=== PATIENT | male | born 1990 | race Hispanic/Latino ===

== ENCOUNTER 2019-11-28 00:51 | Inpatient (IN) | payer SELFPAY ==
[~2019-11-28] VITALS: Ht 170.2 cm; Wt 120.1 kg
[2019-11-28 01:23] LABS: BASOPHILS % (AUTO) 0.9 % (0.0-5.0); HEMATOCRIT 52.8 % (42-54); LYMPHOCYTES % (AUTO) 23.9 % (21.0-51.0); MEAN CORPUSCULAR HEMOGLOBIN 23.2 pg (27.0-33.0); MEAN CORPUSCULAR HGB CONC 30.3 g/dL (32.0-36.0); MEAN CORPUSCULAR VOLUME 76.5 fL (79-99); MONOCYTES % (AUTO) 8.2 % (3.0-13.0); NEUTROPHILS % (AUTO) 63.8 % (40.0-77.0); PLATELET COUNT (AUTO) 336 K/uL (130-400); RED CELL DISTRIBUTION WIDTH 18.7 % (11.0-15.5); WHITE BLOOD COUNT (AUTO) 10.8 K/uL (4.8-10.8)
[2019-11-28 01:31] LABS: CREATININE 1.6 mg/dL (0.5-1.5); POTASSIUM 4.2 mmol/L (3.5-5.1)
[2019-11-28 01:32] LABS: INR 1.15 (0.85-1.15); PARTIAL THROMBOPLASTIN TIME 24.7 SEC (26.3-35.5)
[2019-11-28 01:35] LABS: ALBUMIN 2.8 g/dL (3.5-5.0); BILIRUBIN,TOTAL 1.1 mg/dL (0.2-1.0); TOTAL PROTEIN, SERUM 6.4 g/dL (6.0-8.3)
[2019-11-28 01:36] LABS: APPEARANCE,URINE Clear (CLEAR); BILIRUBIN,URINE Small (NEGATIVE); COLOR,URINE Dark Yellow (YELLOW); GLUCOSE, URINE (UA) Negative (NEGATIVE); KETONES,URINE Trace mg/dL (NEGATIVE); LEUKOCYTE ESTERASE ,URINE Negative (NEGATIVE); NITRATE,URINE Negative (NEGATIVE); OCCULT BLOOD,URINE Small (NEGATIVE); PROTEIN,URINE >=1000 mg/dL (NEGATIVE)
[2019-11-28 01:38] LABS: B-TYPE NATRIURETIC PEPTIDE 873 pg/mL (0-100)
[2019-11-28 01:54] LABS: BACTERIA,URINE None Seen /HPF (None Seen); MUCUS,URINE Rare LPF (None Seen); RBC,URINE 0-1 /HPF (0-1); SQUAMOUS EPITHELIAL CELL,UR Rare /HPF (0-2); WBC,URINE None Seen /HPF (0-1)
[2019-11-28 02:26] LABS: AMPHET/METH SCREEN,URINE NEGATIVE (NEGATIVE); BARBITURATE SCREEN, URINE NEGATIVE (NEGATIVE); BENZODIAZEPINES SCREEN,URINE NEGATIVE (NEGATIVE); CANNABINOID SCREEN,URINE NEGATIVE (NEGATIVE); COCAINE SCREEN,URINE NEGATIVE (NEGATIVE); OPIATE SCREEN,URINE NEGATIVE (NEGATIVE); PHENCYCLIDINE SCREEN,URINE NEGATIVE (NEGATIVE)
[2019-11-28] MEDS ORDERED: ONDANSETRON HCL 4 MG/2 ML VIAL IV PRN (02:45)
[2019-11-28] MEDS ORDERED: LACTULOSE 20 GM/30 ML UDCUP PO PRN (02:45)
[2019-11-28 03:09] LABS: CHOLESTEROL 148 mg/dL (<200); HDL CHOLESTEROL 86 mg/dL (29-71); LDL DIRECT 112 mg/dL (0-99); TRIGLYCERIDES 140 mg/dL (30-200)
[2019-11-28 03:11] LABS: HEMOGLOBIN A1C 6.1 % (4.0-6.0)
[2019-11-28 03:20] VITALS: BP 146/110
--- NOTE | 2019-11-28 03:20 | NUR ---
ADMISSION. PT TRANSFERRED FROM ER INTO ROOM 414, AWAKE, ALERT AND VERBALLY RESPONSIVE. NO C/O PAIN OR DISCOMFORT AT THIS TIME. PT ORIENTED TO ROOM, CALL [facility] WITHIN REACH, BED IN LOWEST POSITION. Addendum: 11/28/19 at 0431 by RENARD CORREIA RN Amended: Links added.
[2019-11-28] MEDS ORDERED: LISI-617 PO (03:53)
[2019-11-28] MEDS ORDERED: OMEP20CA12 PO (03:53)
[2019-11-28] MEDS ORDERED: DOXY100C40 PO (03:53)
[2019-11-28] MEDS ORDERED: LACT1CAP68 PO (03:53)
[2019-11-28] MEDS: HYDRALAZINE HCL 20 MG/ML VIAL IV PRN (04:52)
[2019-11-28] MEDS: METOPROLOL TARTRATE 25 MG TAB PO SCH ×2 (06:42→20:14)
[2019-11-28 08:00] VITALS: BP 138/60
[2019-11-28] MEDS ORDERED: ASPIRIN 81MG TAB.CHEW PO SCH (09:00)
[2019-11-28] MEDS ORDERED: ENOXAPARIN SODIUM 30 MG/0.3 ML SQ SCH (09:00)
[2019-11-28] MEDS: FAMOTIDINE 20MG TAB 20 MG TAB PO SCH (09:41)
[2019-11-28 12:00] VITALS: BP 134/85
[2019-11-28] MEDS: FUROSEMIDE 10 MG/ML 4ML VIAL IV SCH (15:39)
[2019-11-28 16:00] VITALS: BP 135/68
[2019-11-28 19:53] VITALS: BP 152/111
[2019-11-28] MEDS: ATORVASTATIN CALCIUM 20 MG TABLET PO SCH (20:14)
[2019-11-29 00:12] VITALS: BP_SYST 122; BP_SYST 99; BP_DIAS 55; BP_DIAS 73
[2019-11-29] MEDS: FUROSEMIDE 10 MG/ML 4ML VIAL IV SCH ×2 (02:39→15:39)
[2019-11-29 03:55] VITALS: BP 140/93
[2019-11-29 06:03] LABS: BASOPHILS % (AUTO) 1.2 % (0.0-5.0); EOSINOPHILS % (AUTO) 2.5 % (0.0-8.0); LYMPHOCYTES % (AUTO) 22.2 % (21.0-51.0); MEAN CORPUSCULAR HEMOGLOBIN 23.5 pg (27.0-33.0); MEAN CORPUSCULAR HGB CONC 30.6 g/dL (32.0-36.0); MEAN CORPUSCULAR VOLUME 76.9 fL (79-99); MONOCYTES % (AUTO) 9.7 % (3.0-13.0); NEUTROPHILS % (AUTO) 64.1 % (40.0-77.0); PLATELET COUNT (AUTO) 351 K/uL (130-400); RED CELL DISTRIBUTION WIDTH 18.5 % (11.0-15.5); WHITE BLOOD COUNT (AUTO) 10.3 K/uL (4.8-10.8)
[2019-11-29 06:17] LABS: B-TYPE NATRIURETIC PEPTIDE 589 pg/mL (0-100)
[2019-11-29 06:18] LABS: CREATININE 1.6 mg/dL (0.5-1.5); POTASSIUM 4.3 mmol/L (3.5-5.1)
[2019-11-29 07:55] VITALS: BP 142/116
[2019-11-29] MEDS: METOPROLOL TARTRATE 25 MG TAB PO SCH ×2 (09:44→21:15)
[2019-11-29] MEDS: FAMOTIDINE 20MG TAB 20 MG TAB PO SCH (09:44)
--- NOTE | 2019-11-29 11:57 | NUR ---
CARDIAC CONSULT PAGED DR. DAVEY FOR NEW ON-SET CHF WITH 2D ECHO EF OF 25-30%. ANSWERING SERVICE TO ALEXX PHILLIP.
[2019-11-29 12:00] VITALS: BP 128/71
--- NOTE | 2019-11-29 15:00 | NUR ---
SPOKE TO MIKAL FROM [facility] REGARDING CONSULT. PER MIKAL, WILL NOTIFY DR. RAIMUNDO SEAMAN AND WILL FOLLOW UP WITH PATIENT IN AM.
[2019-11-29 16:00] VITALS: BP 140/95
--- NOTE | 2019-11-29 19:33 | NUR ---
D/C PLAN CM spoke to pt regarding d/c planning. Pt is ind. and lives alone. States girlfriend can assist in care if needed. CM provided community resources packet. Plan to home. CM to f/u. Addendum: 11/29/19 at 1934 by CLARISA VILLAFUERTE CM Amended: Links added.
[2019-11-29 20:29] VITALS: BP 162/111
[2019-11-29] MEDS ORDERED: ENALAPRIL MALEATE 10 MG TABLET ONE (21:06)
[2019-11-29] MEDS: ENALAPRIL MALEATE 5 MG TAB PO SCH (21:14)
[2019-11-29] MEDS: ATORVASTATIN CALCIUM 20 MG TABLET PO SCH (21:15)
[2019-11-29] MEDS: HYDROXYZINE HCL 25 MG TABLET PO PRN (21:15)
[2019-11-30] VITALS (7 sets, daily range): BP systolic 130–162; BP diastolic 84–117
[2019-11-30] MEDS: FUROSEMIDE 10 MG/ML 4ML VIAL IV SCH ×2 (02:53→17:05)
[2019-11-30 06:13] LABS: BASOPHILS % (AUTO) 1.1 % (0.0-5.0); EOSINOPHILS % (AUTO) 3.1 % (0.0-8.0); HEMATOCRIT 50.5 % (42-54); MEAN CORPUSCULAR HEMOGLOBIN 23.2 pg (27.0-33.0); MEAN CORPUSCULAR HGB CONC 30.3 g/dL (32.0-36.0); MEAN CORPUSCULAR VOLUME 76.6 fL (79-99); NEUTROPHILS % (AUTO) 55.6 % (40.0-77.0); PLATELET COUNT (AUTO) 338 K/uL (130-400); RED BLOOD CELL COUNT(AUTO) 6.59 MIL/uL (4.50-6.20); RED CELL DISTRIBUTION WIDTH 18.6 % (11.0-15.5); WHITE BLOOD COUNT (AUTO) 10.8 K/uL (4.8-10.8)
[2019-11-30 06:44] LABS: CREATININE 1.8 mg/dL (0.5-1.5); POTASSIUM 4.1 mmol/L (3.5-5.1); T4 (THYROXINE) 7.5 ug/dL (4.7-13.3); THYROID STIMULATING HORMONE 3.27 uIU/mL (0.36-3.74)
[2019-11-30 06:54] LABS: % IRON SATURATION 7.7 % (30-44)
[2019-11-30 07:02] LABS: B-TYPE NATRIURETIC PEPTIDE 632 pg/mL (0-100)
[2019-11-30] MEDS: FAMOTIDINE 20MG TAB 20 MG TAB PO SCH (09:00)
[2019-11-30] MEDS ORDERED: REGADENOSON 0.4 MG/5 ML PF SYG IVP SCH (09:45)
[2019-11-30] MEDS: ENALAPRIL MALEATE 5 MG TAB PO SCH ×2 (11:03→20:36)
[2019-11-30] MEDS: METOPROLOL TARTRATE 25 MG TAB PO SCH ×2 (11:03→20:35)
--- NOTE | 2019-11-30 17:02 | NUR ---
RD NOTIFICATION BMI IS 47 CLASSIFIED MORBID OBESE. DIET: HEART HEALTHY - TOLERATING WELL. MEDS REVIEWED. LABS REVIEWED. SKIN IS INTACT. LBM: 11/29 NOTED. PT OUT OF ROOM AT TIME OF VISIT. PENDING RESULTS AT THIS TIME. RD PENDING WEIGHT LOSS DIET AND NUTRITION EDUCATION DUE TO OBESITY CONTINUE CURRENT DIET RD WILL CONTINUE TO MONITOR AND FOLLOW UP, THANK YOU. Addendum: 11/30/19 at [address] Amended: Links added.
--- NOTE | 2019-11-30 17:25 | NUR ---
PT COMPLAINS PATIENT FINALLY CAME BACK FROM HIS STRESS TEST, HE WAS OUT OF THE ROOM FOR MOST OF THE DAY. DR BROUSSARD ROUNDED EARLIER BUT PT WAS STILL DOWN IN [facility]. I WALKED INTO THE ROOM, PATIENT STATED COMPLAINING ABOUT THE LACK COMMUNICATION FROM NURSES AND DOCTORS AND THE POOR DELIVERY OF INFORMATION DURING HIS ADMISSION. HE WANTS TO KNOW THE RESULTS ON ALL OF THE PREVIOUS TESTS DONE AND HIS PLAN OF CARE. I CALLED DR BROUSSARD AND INFORMED HIM OF THIS SITUATION. DR BROUSSARD VISITED WITH PATIENT. POC DISCUSSED. ALL QUESTIONS ANSWERED ACCORDINGLY. PATIENT CONTINUES TO BE IN A DENIAL ATTITUDE, BELIEVES THAT WE ARE NOT DOING ENOUGH FOR HIM, EVEN WHEN EVERYTHING HAS BEEN EXPLAINED TO HIM BY DR BROUSSARD AND MYSELF. PATIENTS MOTHER, PARIS, TALKED TO ME OUTSIDE THE ROOM AND EXPLAINED THAT HIS SON HAS ALWAYS BEEN VERY STUBBORN AND GETS FRUSTRATED VERY EASILY. I REASSURED PARIS THAT WE ARE DOING EVERYTHING FOR HIS SON AND THAT THE DOCTORS ARE WILLING TO HELP HIM IF HE AGREES. WILL CONTINUE TO MONITOR PATIENT CLOSELY.
[2019-11-30] MEDS: ATORVASTATIN CALCIUM 20 MG TABLET PO SCH (20:36)
[2019-12-01] MEDS: FUROSEMIDE 10 MG/ML 4ML VIAL IV SCH ×2 (03:20→17:03)
[2019-12-01 03:56] VITALS: BP 151/119
[2019-12-01 04:50] LABS: BASOPHILS % (AUTO) 1.2 % (0.0-5.0); EOSINOPHILS % (AUTO) 4.8 % (0.0-8.0); LYMPHOCYTES % (AUTO) 30.2 % (21.0-51.0); MEAN CORPUSCULAR HEMOGLOBIN 23.3 pg (27.0-33.0); MEAN CORPUSCULAR HGB CONC 30.6 g/dL (32.0-36.0); MEAN CORPUSCULAR VOLUME 76.4 fL (79-99); MONOCYTES % (AUTO) 8.9 % (3.0-13.0); NEUTROPHILS % (AUTO) 54.5 % (40.0-77.0); PLATELET COUNT (AUTO) 341 K/uL (130-400); RED BLOOD CELL COUNT(AUTO) 6.81 MIL/uL (4.50-6.20); RED CELL DISTRIBUTION WIDTH 18.6 % (11.0-15.5); WHITE BLOOD COUNT (AUTO) 10.5 K/uL (4.8-10.8)
[2019-12-01 05:00] LABS: ALBUMIN 2.7 g/dL (3.5-5.0); CREATININE 1.9 mg/dL (0.5-1.5); POTASSIUM 3.8 mmol/L (3.5-5.1); TOTAL PROTEIN, SERUM 6.6 g/dL (6.0-8.3)
[2019-12-01] MEDS ORDERED: METOLAZONE 2.5 MG TABLET PO SCH (09:00)
[2019-12-01 09:17] VITALS: BP 148/119
[2019-12-01] MEDS: METOPROLOL TARTRATE 25 MG TAB PO SCH ×2 (09:28→20:14)
[2019-12-01] MEDS: ENALAPRIL MALEATE 5 MG TAB PO SCH ×2 (09:28→20:15)
[2019-12-01] MEDS: FAMOTIDINE 20MG TAB 20 MG TAB PO SCH (09:28)
[2019-12-01 11:00] VITALS: BP 124/72
--- NOTE | 2019-12-01 11:00 | NUR ---
PATIENT STATED HE DIDN'T LIKED THE WAY DR SEAMAN EXPLAINED THINGS TO HIM. I PROVIDED PATIENT WITH MORE INFORMATION ON HEART CATH, EXIT CARE MATERIAL PROVIDED WELL. ALL QUESTIONS ANSWERED ACCORDINGLY. AFTER EXPLAINING THE PROCEDURE THOROUGHLY PATIENT IS NOW ABLE TO UNDERSTAND HOW IT'S DONE, RISK AND BENEFITS AND SO ON. PATIENT AGREES TO HAVE THE PROCEDURE DONE, INFORMED DR SEAMAN OF PT AGREEMENT. HOWEVER, DR SEAMAN WANTS TO MONITOR HIS RENAL FUNCTION FOR TODAY, CBC AND BNP ORDERED FOR TOMORROW MORNING. POSSIBLE HEART CATH TOMORROW, DEPENDING ON LAB RESULTS, PT AWARE, NO MORE CONCERNS VOICED.
[2019-12-01 17:02] VITALS: BP 144/98
[2019-12-01 19:54] VITALS: BP 148/104
[2019-12-01] MEDS: ATORVASTATIN CALCIUM 20 MG TABLET PO SCH (20:14)
[2019-12-01] MEDS: HYDROXYZINE HCL 25 MG TABLET PO PRN (22:15)
[2019-12-01 23:56] VITALS: BP 161/109
[2019-12-02] MEDS: FUROSEMIDE 10 MG/ML 4ML VIAL IV SCH ×2 (03:48→15:13)
[2019-12-02 03:51] VITALS: BP 147/94
[2019-12-02 05:37] LABS: HEMATOCRIT 51.3 % (42-54); MEAN CORPUSCULAR HEMOGLOBIN 23.1 pg (27.0-33.0); MEAN CORPUSCULAR HGB CONC 30.2 g/dL (32.0-36.0); MEAN CORPUSCULAR VOLUME 76.3 fL (79-99); PLATELET COUNT (AUTO) 334 K/uL (130-400); RED BLOOD CELL COUNT(AUTO) 6.72 MIL/uL (4.50-6.20); RED CELL DISTRIBUTION WIDTH 18.1 % (11.0-15.5); WHITE BLOOD COUNT (AUTO) 10.1 K/uL (4.8-10.8)
[2019-12-02 05:55] LABS: ALBUMIN 2.7 g/dL (3.5-5.0); BILIRUBIN,TOTAL 0.9 mg/dL (0.2-1.0); CREATININE 1.6 mg/dL (0.5-1.5); POTASSIUM 3.5 mmol/L (3.5-5.1); TOTAL PROTEIN, SERUM 6.3 g/dL (6.0-8.3)
[2019-12-02 06:03] LABS: B-TYPE NATRIURETIC PEPTIDE 703 pg/mL (0-100)
[2019-12-02 06:18] LABS: BAND NEUTROPHILS % (MANUAL) 1 % (0-2); BASOPHILS % (MANUAL) 3 % (0-2); EOSINOPHILS % (MANUAL) 8 % (1-6); LYMPHOCYTES % (MANUAL) 29 % (22-44); MAN.DIFF COMMENT-IMPRESSION MANUAL DIFFERENTIAL; MONOCYTES % (MANUAL) 13 % (2-9); SEGMENTED NEUTROPHILS % 46 % (40-70)
[2019-12-02 06:19] LABS: PLATELET MORPHOLOGY COMMENT ADEQUATE
[2019-12-02 08:00] VITALS: BP 148/103
[2019-12-02] MEDS: ENALAPRIL MALEATE 5 MG TAB PO SCH ×2 (08:38→22:31)
[2019-12-02] MEDS: METOLAZONE 2.5 MG TABLET PO SCH (08:38)
[2019-12-02] MEDS: FAMOTIDINE 20MG TAB 20 MG TAB PO SCH (08:38)
[2019-12-02] MEDS: ASPIRIN 81 MG EC TAB PO SCH (08:38)
[2019-12-02] MEDS: METOPROLOL TARTRATE 25 MG TAB PO SCH ×2 (08:38→22:31)
[2019-12-02 11:59] VITALS: BP 128/96
[2019-12-02 16:00] VITALS: BP 153/108
--- NOTE | 2019-12-02 16:53 | NUR ---
SPOKE TO PATIENT AT LENGTH RE RIGHT & LEFT HEARTH CATH IN AM. PT STATED APPRECIATED TEACHING BY PRIMARY RN RE PLAN OF CARE RISK FACTORS AND INITIATION OF CHF TEACHING DONE. PT EXPRESSED INTEREST IN [facility] , PREVIOUSLY HAD DECLINED STATING DR. SAGASTUME IS HIS MD; NOW WILL LIKE APPLICATION FOR [facility]
[2019-12-02] MEDS ORDERED: POTASSIUM CHLORIDE 20 MEQ ERTAB PO ONE (19:08)
[2019-12-02] MEDS: MORPHINE SULFATE 2 MG/ML 1ML SYG IV PRN (19:09)
[2019-12-02] MEDS ORDERED: LIDOCAINE HCL-MPF 1% 2ML VIAL IV PRN (19:15)
[2019-12-02] MEDS ORDERED: POTASSIUM CHLORIDE 10% ELIXIR 20 MEQ/15 ML UDCUP PO PRN (19:15)
[2019-12-02] MEDS ORDERED: POTASSIUM CHLORIDE 10MEQ/100ML 100 ML IV PRN (19:15)
[2019-12-02] MEDS ORDERED: POTASSIUM CHLORIDE 20 MEQ ERTAB PO PRN (19:15)
[2019-12-02 19:55] VITALS: BP 167/99
[2019-12-02] MEDS: ATORVASTATIN CALCIUM 20 MG TABLET PO SCH (22:31)
[2019-12-02 23:21] VITALS: BP 155/98
[2019-12-03] VITALS (13 sets, daily range): BP systolic 143–164; BP diastolic 86–114
[2019-12-03 04:22] LABS: EOSINOPHILS % (AUTO) 8.6 % (0.0-8.0); LYMPHOCYTES % (AUTO) 28.6 % (21.0-51.0); MEAN CORPUSCULAR HEMOGLOBIN 23.2 pg (27.0-33.0); MEAN CORPUSCULAR HGB CONC 30.4 g/dL (32.0-36.0); MEAN CORPUSCULAR VOLUME 76.2 fL (79-99); NEUTROPHILS % (AUTO) 52.3 % (40.0-77.0); PLATELET COUNT (AUTO) 286 K/uL (130-400); RED BLOOD CELL COUNT(AUTO) 6.69 MIL/uL (4.50-6.20); RED CELL DISTRIBUTION WIDTH 17.9 % (11.0-15.5); WHITE BLOOD COUNT (AUTO) 8.6 K/uL (4.8-10.8)
[2019-12-03 04:46] LABS: ALBUMIN 2.5 g/dL (3.5-5.0); BILIRUBIN,TOTAL 0.8 mg/dL (0.2-1.0); CREATININE 1.9 mg/dL (0.5-1.5); POTASSIUM 3.5 mmol/L (3.5-5.1); TOTAL PROTEIN, SERUM 6.1 g/dL (6.0-8.3)
[2019-12-03] MEDS: FUROSEMIDE 10 MG/ML 4ML VIAL IV SCH ×2 (05:50→16:10)
[2019-12-03] MEDS ORDERED: HEPARIN SODIUM 1000UNIT/ML 10ML VIAL ONE (07:23)
[2019-12-03] MEDS ORDERED: NITROGLYCERIN 2 MG/VIAL VIAL IV ONE (07:24)
[2019-12-03] MEDS ORDERED: NICARDIPINE HCL 25 MG/10 ML ML IV ONE (07:24)
[2019-12-03] MEDS ORDERED: IOHEXOL 350 MG/ML 100ML INFUS..BTL IV ONE (07:24)
[2019-12-03] MEDS ORDERED: IOHEXOL-350 50ML VIAL IV ONE (07:24)
[2019-12-03] MEDS ORDERED: FENTANYL CITRATE PF 50 MCG/1 ML 2ML VIAL ONE (07:25)
[2019-12-03] MEDS ORDERED: MIDAZOLAM HCL 1 MG/ML 2ML VIAL ONE (07:25)
[2019-12-03] MEDS ORDERED: LIDOCAINE HCL 2% 20ML ONE (07:25)
[2019-12-03] MEDS ORDERED: LABETALOL 20 MG/4 ML DISP.SYRIN IV ONE (08:37)
[2019-12-03] MEDS ORDERED: HYDRALAZINE HCL 20 MG/ML VIAL IV PRN (08:45)
[2019-12-03] MEDS ORDERED: HYDRALAZINE HCL 20 MG/ML VIAL ONE (08:56)
[2019-12-03] MEDS: ASPIRIN 81 MG EC TAB PO SCH (09:00)
[2019-12-03] MEDS: METOLAZONE 2.5 MG TABLET PO SCH (09:00)
[2019-12-03] MEDS: FAMOTIDINE 20MG TAB 20 MG TAB PO SCH (12:10)
[2019-12-03] MEDS: METOPROLOL TARTRATE 25 MG TAB PO SCH ×2 (12:10→20:22)
[2019-12-03] MEDS: ENALAPRIL MALEATE 5 MG TAB PO SCH ×2 (12:11→20:23)
--- NOTE | 2019-12-03 14:18 | NUR ---
NUTRITION EDUCATION COMPLETED DX ACUTE ON CHRONIC CHF AND CARDIOMYOPATHY. S/P CORONARY ANGIOGRAPHY VIA RIGHT RADIAL APPROACH. PT CONSUMES REGULAR DIET AT HOME AND IS SOMEWHAT FAMILIAR WITH FOODS TO AVOID/ RECOMMENDED ACCORDING TO HIS NEEDS. RD PROVIDED HEART HEALTHY AND LOW SODIUM DIET AND NUTRITION EDUCATION. ALL QUESTIONS WERE ANSWERED AND PT VERBALIZED UNDERSTANDING. EDUCATION MATERIALS WERE PROVIDED FOR HOME IN [place]. Addendum: 12/03/19 at [address] Amended: Links added.
[2019-12-03] MEDS: ATORVASTATIN CALCIUM 20 MG TABLET PO SCH (20:23)
[2019-12-03] MEDS: NICOTINE 21 MG/ 24 HR PATCH TD SCH (21:29)
[2019-12-03] MEDS: HYDRALAZINE HCL 20 MG/ML VIAL IV PRN (22:36)
[2019-12-04] MEDS: MORPHINE SULFATE 2 MG/ML 1ML SYG IV PRN (00:23)
[2019-12-04 00:24] VITALS: BP 148/81
[2019-12-04 03:53] LABS: HEMATOCRIT 55.5 % (42-54); MEAN CORPUSCULAR HEMOGLOBIN 22.9 pg (27.0-33.0); MEAN CORPUSCULAR HGB CONC 30.6 g/dL (32.0-36.0); MEAN CORPUSCULAR VOLUME 74.7 fL (79-99); PLATELET COUNT (AUTO) 301 K/uL (130-400); RED BLOOD CELL COUNT(AUTO) 7.43 MIL/uL (4.50-6.20); RED CELL DISTRIBUTION WIDTH 18.5 % (11.0-15.5); WHITE BLOOD COUNT (AUTO) 10.8 K/uL (4.8-10.8)
[2019-12-04] MEDS: FUROSEMIDE 10 MG/ML 4ML VIAL IV SCH (03:54)
[2019-12-04 04:17] LABS: CREATININE 1.5 mg/dL (0.5-1.5); POTASSIUM 3.4 mmol/L (3.5-5.1)
[2019-12-04 04:24] VITALS: BP 139/103
[2019-12-04 08:07] VITALS: BP 152/101
[2019-12-04] MEDS: NICOTINE 21 MG/ 24 HR PATCH TD SCH (08:11)
[2019-12-04] MEDS: ASPIRIN 81 MG EC TAB PO SCH (08:12)
[2019-12-04] MEDS: METOLAZONE 2.5 MG TABLET PO SCH (08:12)
[2019-12-04] MEDS: FAMOTIDINE 20MG TAB 20 MG TAB PO SCH (08:12)
[2019-12-04] MEDS ORDERED: CARVEDILOL 6.25 MG TABLET PO SCH (09:00)
[2019-12-04] MEDS ORDERED: FUROSEMIDE 40 MG TABLET PO SCH (09:00)
[2019-12-04] MEDS ORDERED: ENALAPRIL MALEATE 5 MG TAB PO SCH (09:00)
[2019-12-04 11:04] VITALS: BP 122/85
[2019-12-04] MEDS ORDERED: CARV6.2579 PO (11:19)
[2019-12-04] MEDS ORDERED: ATOR20TA65 PO (11:19)
[2019-12-04] MEDS ORDERED: METO2.5T2 PO (11:19)
[2019-12-04] MEDS ORDERED: FURO40TA7 PO (11:19)
[2019-12-04] MEDS ORDERED: ENAL5TAB PO (11:19)
--- NOTE | 2019-12-04 13:48 | NUR ---
DISCHARGE DISCHARGE INSTRUCTIONS GIVEN TO PATIENT, VERBALIZED UNDERSTANDING. EDUCATED PATIENT ON SYMPTOMS OF HEART FAILURE, INSTRUCTED PATIENT TO CALL EMS IF HE EXPERIENCES ANY UNRELIEVED CHEST PAIN. PATIENT WAS GIVEN A LIST OF PRIMARY CARE DOCTORS, SINCE HE DOESNT HAVE A PRIMARY CARE PHYSICIAN. PRESCRIPTIONS GIVEN. PATIENT IS BEING DISCHARGED WITHOUT LIFE VEST OK'D BY SHAYLEE PASTRANA FOR CARDIOLOGY. IV REMOVED. TELEPAK DISCONTINUED.
--- NOTE | 2019-12-04 15:00 | NUR ---
cm note call made to [employer] rep Thomas and states she has received that patient assistance request information by pt, and will continue to ffollow with status of approval. and will call pt with update. provided pt with thomas's phone # and main line phone # for [employer] . and informed they will continue to f/u after dc. pt verbalizes understanding.
== END 2019-12-04 14:45 | disposition home or self-care (01) | DRG 286 ==
LOC: EDH 00:51 → OBSVTOIN 00:52 → EDHIP 00:52 → 4CH 03:21
PROVIDERS: ADMIT Hospitalist; ATTEND Hospitalist
PROC: 4A023N7 Measurement of Cardiac Sampling and Pressure, Left Heart, Percutaneous Approach (ICD-10-PCS; principal; 2019-12-03)
PROC: B2151ZZ Fluoroscopy of Left Heart using Low Osmolar Contrast (ICD-10-PCS; 2019-12-03)
PROC: B2111ZZ Fluoroscopy of Multiple Coronary Arteries using Low Osmolar Contrast (ICD-10-PCS; 2019-12-03)
DX: I13.0 Hypertensive heart and chronic kidney disease with heart failure and stage 1 through stage 4 chronic kidney disease, or unspecified chronic kidney disease (principal); I50.23 Acute on chronic systolic (congestive) heart failure; N17.9 Acute kidney failure, unspecified; N18.4 Chronic kidney disease, stage 4 (severe); Z68.41 Body mass index [BMI] 40.0-44.9, adult; I42.8 Other cardiomyopathies; E66.9 Obesity, unspecified; F17.210 Nicotine dependence, cigarettes, uncomplicated; I25.10 Atherosclerotic heart disease of native coronary artery without angina pectoris; K76.0 Fatty (change of) liver, not elsewhere classified; Z87.01 Personal history of pneumonia (recurrent); Z91.14 Patient's other noncompliance with medication regimen
CPT/HCPCS: 36415; 71046; 74176; 78452; 80048; 80053; 80061; 80305; 81001; 82550; 82728; 82948; 83036; 83540; 83550; 83690; 83880; 84165; 84436; 84443; 84481; 84484; 85025; 85027; 85610; 85730; 86701; 87040; 87390; 87804; 93005; 93017; 93306; 93458; 96374; 99156; 99157; A9500; G0378; J0360; J1644; J1940; J2250; J2785; J3010; J3490; Q9967

== ENCOUNTER 2020-09-03 12:16 | Emergency (ER) | payer OTHER ==
[~2020-09-03 12:16] MED LIST: ATOR20TA65 PO; CARV6.2579 PO; ENAL5TAB17 PO; FURO40TA7 PO; LISI-617 PO; METO2.5T2 PO; OMEP20CA12 PO
[2020-09-03 12:45] LABS: BASOPHILS % (AUTO) 1.1 % (0.0-5.0); HEMATOCRIT 53.5 % (42-54); LYMPHOCYTES % (AUTO) 26.2 % (21.0-51.0); MEAN CORPUSCULAR HEMOGLOBIN 24.9 pg (27.0-33.0); MEAN CORPUSCULAR HGB CONC 31.2 g/dL (32.0-36.0); MEAN CORPUSCULAR VOLUME 79.6 fL (79-99); MONOCYTES % (AUTO) 7.4 % (3.0-13.0); PLATELET COUNT (AUTO) 260 K/uL (130-400); RED BLOOD CELL COUNT(AUTO) 6.72 MIL/uL (4.50-6.20); RED CELL DISTRIBUTION WIDTH 18.5 % (11.0-15.5); WHITE BLOOD COUNT (AUTO) 9.9 K/uL (4.8-10.8)
[2020-09-03] MEDS ORDERED: LABETALOL 20 MG/4 ML DISP.SYRIN IV ONE (12:45)
[2020-09-03 13:09] LABS: INR 1.06 (0.85-1.15); PARTIAL THROMBOPLASTIN TIME 25.6 SEC (26.3-35.5); PROTHROMBIN TIME 11.4 SEC (9.6-11.6)
[2020-09-03 13:16] LABS: ALBUMIN 2.9 g/dL (3.5-5.0); B-TYPE NATRIURETIC PEPTIDE 323 pg/mL (0-100); BILIRUBIN,TOTAL 1.5 mg/dL (0.2-1.0); CREATININE 1.7 mg/dL (0.5-1.5); POTASSIUM 3.4 mmol/L (3.5-5.1); TOTAL PROTEIN, SERUM 6.7 g/dL (6.0-8.3)
[2020-09-03 13:54] LABS: APPEARANCE,URINE CLEAR (CLEAR); BILIRUBIN,URINE SMALL (NEGATIVE); COLOR,URINE YELLOW (YELLOW); GLUCOSE, URINE (UA) NEGATIVE (NEGATIVE); KETONES,URINE NEGATIVE (NEGATIVE); LEUKOCYTE ESTERASE ,URINE NEGATIVE (NEGATIVE); NITRATE,URINE NEGATIVE (NEGATIVE); OCCULT BLOOD,URINE MODERATE (NEGATIVE); PROTEIN,URINE >=300 mg/dL (NEGATIVE)
[2020-09-03 13:59] LABS: BACTERIA,URINE Rare /HPF (None Seen); MUCUS,URINE Rare LPF (None Seen); RBC,URINE 0-1 /HPF (0-1); SQUAMOUS EPITHELIAL CELL,UR Rare /HPF (0-2)
[2020-09-03 14:04] LABS: AMPHET/METH SCREEN,URINE NEGATIVE (NEGATIVE); BARBITURATE SCREEN, URINE NEGATIVE (NEGATIVE); BENZODIAZEPINES SCREEN,URINE NEGATIVE (NEGATIVE); CANNABINOID SCREEN,URINE NEGATIVE (NEGATIVE); COCAINE SCREEN,URINE NEGATIVE (NEGATIVE); OPIATE SCREEN,URINE NEGATIVE (NEGATIVE); PHENCYCLIDINE SCREEN,URINE NEGATIVE (NEGATIVE)
[2020-09-03] MEDS ORDERED: ENALAPRIL MALEATE 5 MG TAB ONE (16:06)
[2020-09-03] MEDS ORDERED: CARVEDILOL 6.25 MG TABLET PO ONE (16:06)
== END 2020-09-03 17:46 | disposition home or self-care (01) ==
LOC: EDH 12:16
DX: I13.10 Hypertensive heart and chronic kidney disease without heart failure, with stage 1 through stage 4 chronic kidney disease, or unspecified chronic kidney disease (principal); I43 Cardiomyopathy in diseases classified elsewhere; N18.9 Chronic kidney disease, unspecified; Z91.14 Patient's other noncompliance with medication regimen; Z72.0 Tobacco use
CPT/HCPCS: 36415; 71045; 80053; 80305; 81001; 82550; 83735; 83880; 84484; 85025; 85610; 85730; 93005; 96374